=== PATIENT | male | born 1985 | race Caucasian/White ===

== ENCOUNTER 2018-05-25 09:17 | Outpatient (CLI) ==
--- NOTE | 2018-05-25 11:08 | US ---
EXAM: Right upper quadrant abdominal ultrasound. History: Right upper quadrant abdominal pain. Technique: Multiple sonographic images through the abdomen were obtained. Color duplex Doppler was used to interrogate vascular flow. Findings: The liver is diffusely echogenic. No focal liver lesions identified sonographically. There is anteg rade flow within the main portal vein. No abdominal ascites. Pancreas was not well visualized due to obscuration by bowel gas. No shadowing gallstones. Gallbladder wall is not thickened. Common bile duct measures 0.3 cm in caliber. Limited visualization of the right kidney demonstrates no evidence for hydronephrosis. Impression: Hepatic steatosis. Examination was otherwise unremarkable.
== END 2018-05-25 09:18 | disposition home or self-care (01) ==
LOC: RAD 09:17
PROVIDERS: ATTEND Family Medicine
DX: R10.11 Right upper quadrant pain (principal)